=== PATIENT | female | born 2005 | race Hispanic/Latino ===

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

== ENCOUNTER 2023-11-25 10:31 | Outpatient (CLI) | payer BC | END 2023-11-25 10:32 | disposition home or self-care (01) | LOC: BICULT 10:31 | PROVIDERS: ATTEND Family Medicine | DX: N64.4 Mastodynia (principal) ==